=== PATIENT | female | born 1930 | race Caucasian/White ===

== ENCOUNTER 2016-04-02 16:37 | Emergency (ER) | payer OTHER ==
[2016-04-02] MEDS ORDERED: ONDANSETRON 4 MG/2ML 2 ML VIAL ONE ×2 (16:47→17:41)
[2016-04-02] MEDS ORDERED: LACTATED RINGERS 1,000 ML ONE ×2 (17:41→18:34)
[2016-04-02 18:07] LABS: ABSOLUTE NEUTROPHIL COUNT 6.8 K/mm3 (1.8-7.7); BASO % 0.5 % (0.2-1.0); EOS % 0.5 % (0.9-2.9); HEMATOCRIT 33.6 % (37.0-47.0); IMM NEUT # 0.1 K/mm3 (0-0.2); IMM NEUT% 0.7 % (0-1); LYMPH # 0.5 (1.0-4.8); LYMPH % 6.4 % (15-45); MEAN CELL VOLUME 95.5 fl (81.0-99.0); MEAN CORPUSCULAR HEMOGLOBIN 31.3 pg (27.0-31.0); MEAN CORPUSCULAR HGB CONC 32.7 g/dl (33.0-37.0); MONO # 0.1 (0.0-0.8); MONO % 1.6 % (4-12); NEUT % 90.3 % (43-75); PLATELET COUNT 268 K/mm3 (130-400); RED CELL DISTRIBUTION WIDTH 15.2 % (11.5-14.5)
[2016-04-02 18:13] LABS: ALB/GLOB RATIO 1.1 (>1.0); ALBUMIN 3.7 gm/dL (3.5-5.7); CALCIUM 9.1 mg/dL (8.6-10.3)
[2016-04-02 18:21] LABS: SPECIFIC GRAVITY 1.015 (1.001-1.030); URINE BILIRUBIN NEGATIVE (NEGATIVE); URINE BLOOD 1+ (NEGATIVE); URINE GLUCOSE (UA) NEGATIVE (NEGATIVE); URINE LEUKOCYTE ESTERASE NEGATIVE (NEGATIVE); URINE NITRITE NEGATIVE (NEGATIVE); URINE PROTEIN 1+ (NEGATIVE); URINE UROBILINOGEN NORMAL (0-1 mg/dl)
[2016-04-02 18:23] LABS: URINE APPEARANCE CLEAR; URINE COLOR LIGHT YELLOW
[2016-04-02 18:29] LABS: URINE BACTERIA 3+; URINE EPITHELIAL CELLS 0 /hpf
--- NOTE | 2016-04-02 18:29 | CT ---
EXAMINATION: Noncontrast cranial CT. CLINICAL INDICATION: Head trauma ground-level fall. Headache. TECHNIQUE: A noncontrast cranial CT scan was obtained. Axial images were acquired from just above the vertex through the skull base. 4 mm stacked axial, coronal, and sagittal reconstructions were reviewed. COMPARISONS: None FINDINGS: The CSF containing spaces are prominent throughout. There is diminished attenuation within the periventricular white matter tracts bilaterally. No acute intercranial hemorrhage, mass or mass effect is identified. No extra-axial fluid collections are detected. The visualized segments of the posterior fossa are unremarkable. The cerebellar pontine angle cisterns are symmetric. The osseous structures are intact. The paranasal sinuses are clear. The visualized portions of the orbits are unremarkable. The mastoid sinuses are normal and symmetric. There is a small left posterior occipital scalp hematoma. No adjacent fracture is identified. IMPRESSION: 1. 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 No acute intracranial abnormalities are identified. 2. Small left occipital scalp hematoma.
--- NOTE | 2016-04-02 18:39 | CT ---
Examination: Noncontrast CT scans of the Abdomen and Pelvis Clinical indication: Fall injuries. Posterior pain involving back and abdomen. Comparison:None Technique: Multidetector CT scanner was utilized. No oral or intravenous contrast was administered. Axial images were acquired from just above the domes of the diaphragm to the iliac crest. A CT scan of the pelvis was carried out from the iliac crest to the initial tuberosities. Sagittal, axial and coronal stacked 5 mm images were reviewed. Findings: Abdomen CT (noncontrast): There is bibasilar atelectasis. Small bilateral pleural effusions are noted. There is cardiomegaly. No pericardial effusion is identified. The liver is unremarkable. There is intrahepatic biliary dilatation. Hemostatic clips are noted near the gallbladder fossa. The spleen size and attenuation are within normal limits. The pancreas is normal in size and contours. No inflammatory stranding is identified. The pancreatic duct is unremarkable. The adrenals are unremarkable. Kidneys are without mass or hydronephrosis. There is perinephric stranding. This may be chronic. Atherosclerotic changes of the abdominal aorta are present with ectasia. No aneurysm is identified. There is no adjacent lymphadenopathy. The stomach is unremarkable. The visualized segments of small and large bowel are within normal limits. The osseous structures exhibit no displaced fracture. No lytic or blastic lesions are identified. Pelvic CT findings (noncontrast): A Ross catheter is noted in position. The bladder is decompressed. The uterus is absent. There are no adnexal masses. No adenopathy is identified. Atherosclerotic plaquing in the iliac vessels are noted. There is no aneurysm. There is diverticulosis of the colon without evidence of acute diverticulitis. No inflammatory stranding is identified adjacent to the cecum. There are fractures of the right superior and inferior pubic ramus. The superior pubic ramus fracture appears old. Inferior pubic ramus fracture is of uncertain age. 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 No osteolytic or blastic lesions are identified. The overlying soft tissues are unremarkable. IMPRESSION: 1. No evidence of acute traumatic injury involving the abdomen 2. Fractures of the right superior and inferior pubic ramus. These may be remote. No acute fractures currently cannot be excluded with confidence. 3. Small bilateral pleural effusions with basilar atelectasis. 4. Atherosclerosis. 5. Dilated common bile duct. This most likely secondary to prior cholecystectomy and age-related changes. 6. Prior hysterectomy. 7. Diverticulosis without evidence of acute diverticulitis. 8. Spondylosis changes lumbar spine. The findings were uploaded to the electronic medical record for review at approximately 6:38 PM 04/02/2016
--- NOTE | 2016-04-02 18:43 | RAD ---
EXAMINATION:CHEST - 2 VIEWS CLINICAL INDICATION: Cough and fever COMPARISON:none FINDINGS: There is borderline cardiomegaly. There is aortic ectasia with atherosclerosis. There is no adenopathy identified. There are small bilateral pleural effusions. Minimal basilar atelectasis is noted. There is osteopenia. Mild wedge deformity of the midthoracic vertebra are noted. IMPRESSION: 1. Senescent changes of the thorax as described. 2. Small bilateral pleural effusions with basilar atelectasis. 3. Osteopenia with spondylosis changes and mild wedge deformities of the thoracic vertebra.
[2016-04-02 18:56] LABS: BAND 5 % (0-10); BASOPHIL 0 % (0-1); EOSINOPHIL 0 % (1-3); LYMPHOCYTE 12 % (15-45); MONOCYTE 4 % (4-12); NEUTROPHILS 79 % (43-75); PLATELET ESTIMATE NORMAL (NORMAL); TOTAL CELLS COUNTED 100
[2016-04-02] MEDS ORDERED: CEFTRIAXONE 1 GRAM DUPLEX 50 ML IV ONE (18:56)
[2016-04-02] MEDS ORDERED: OXYCODONE HCL 5 MG TABLET ONE (21:13)
== END 2016-04-03 01:17 | disposition home or self-care (01) ==
LOC: ED 16:37
DX: N12 Tubulo-interstitial nephritis, not specified as acute or chronic (principal); B96.89 Other specified bacterial agents as the cause of diseases classified elsewhere; R51 Headache; W18.30XA Fall on same level, unspecified, initial encounter
CPT/HCPCS: 83605; 85025; 87040; 87086; 80053; 87186 ×2; 81001; 87077 ×2; 71020; 74176; 70450; 96375; 96376; 99285; 96361 ×3; 96365; 99284; A9270; J2405 ×2; J7120 ×2; J0696